=== PATIENT | male | born 2000 | race Caucasian/White ===

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

== ENCOUNTER 2018-05-13 19:09 | Emergency (ER) | payer BC | END 2018-05-13 22:32 | disposition home or self-care (01) | LOC: FTE 19:09 | DX: B00.1 Herpesviral vesicular dermatitis (principal) | CPT/HCPCS: 99283; Z7502 ==